=== PATIENT | male | born 1950 | race Caucasian/White ===

== ENCOUNTER 2023-06-15 13:36 | Inpatient (IN) | payer OTHER, MEDICARE, BC ==
[2023-06-15] MEDS ORDERED: Ondansetron 4 MG/2 ML SDV ONE (13:53)
[2023-06-15] MEDS ORDERED: Lactated Ringers 1,000 ML IV ONE (13:55)
[2023-06-15] MEDS ORDERED: Diphtheria,Pertussis(Acell),Tetanus Vaccine 0.5 ML Syringe IM ONE (13:56)
[2023-06-15] MEDS ORDERED: Iopamidol 755 Mg/ML 100 ML Bottle IVPUSH ONE ×2 (13:59→14:09)
[2023-06-15 14:13] LABS: BASOPHILS ABSOLUTE AUTO 0.02 10^3/uL (0.00-0.50); BASOPHILS PERCENT AUTO 0.2 % (0-1); EOSINOPHILS ABSOLUTE AUTO 0.03 10^3/uL (0.00-1.50); EOSINOPHILS PERCENT AUTO 0.3 % (0-6); HEMATOCRIT 38.7 % (42.0-52.0); HEMOGLOBIN 13.1 g/dL (14.0-18.0); IMMATURE GRAN PERCENT AUTO 1.1 % (0.0-4.9); LYMPHOCYTES ABSOLUTE AUTO 0.87 10^3/uL (0.60-5.00); LYMPHOCYTES PERCENT AUTO 9.8 % (24-44); MEAN CORPUSCULAR HGB CONC 33.9 g/dL (32.0-36.0); MEAN CORPUSCULAR VOLUME 91.7 fL (83.0-97.0); MONOCYTES ABSOLUTE AUTO 0.46 10^3/uL (0.00-1.50); MONOCYTES PERCENT AUTO 5.2 % (0-10); NEUTROPHILS ABSOLUTE AUTO 7.43 x10^3/uL (1.80-8.00); NEUTROPHILS PERCENT AUTO 83.4 % (41-71); PLATELET COUNT,PLT 145 10^3/uL (150-400); RED BLOOD CELL COUNT 4.22 x10^6/uL (4.50-6.00); WHITE BLOOD CELL COUNT,WBC 8.9 10^3/uL (4.0-11.0)
[2023-06-15] MEDS ORDERED: Bacitracin/Neomycin/Polymyxin B Oint 28.4 GM Tube TOP ONE (14:24)
[2023-06-15 14:33] LABS: ALANINE AMINOTRANSFERASE,ALT 24 U/L (12-78); ALBUMIN 3.4 g/dL (3.4-5.0); ALKALINE PHOSPHATASE 61 U/L (46-116); ASPARTATE AMNIOTRANSFERASE,AST 18 U/L (15-37); BILIRUBIN TOTAL 0.9 mg/dL (0.0-1.0); BLOOD UREA NITROGEN,BUN 15 mg/dL (7-18); C-REACTIVE PROTEIN 0.14 mg/dL (<=0.30); CALCIUM 8.5 mg/dL (8.4-10.1); CARBON DIOXIDE,CO2 30 mmol/L (21-32); CHLORIDE,CL 103 mEq/L (98-106); CREATININE 0.8 mg/dL (0.7-1.3); ESTIMATED GFR 93 mL/min (>=60); GLUCOSE RANDOM 117 mg/dL (75-99); POTASSIUM,K 4.2 mEq/L (3.5-5.0); SODIUM,NA 134 mEq/L (136-145)
[2023-06-15] MEDS ORDERED: Morphine 2 MG/ML SYRINGE IVPUSH ONE (15:04)
[2023-06-15 15:43] LABS: APPEARANCE,URINE CLEAR (CLEAR); BILIRUBIN,URINE NEGATIVE (NEGATIVE); COLOR,URINE YELLOW (YELLOW); GLUCOSE,URINE NEGATIVE (NEGATIVE); KETONES,URINE NEGATIVE (NEGATIVE); LEUKOCYTE ESTERASE,URINE NEGATIVE (NEGATIVE); NITRITE,URINE NEGATIVE (NEGATIVE); OCCULT BLOOD,URINE NEGATIVE (NEGATIVE); PROTEIN,URINE NEGATIVE (NEGATIVE); UROBILINOGEN,URINE 0.2 EU/dL (0.2-1.0)
[2023-06-15] MEDS ORDERED: Ondansetron 4 MG/2 ML SDV IV PRN (17:11)
[2023-06-15] MEDS ORDERED: HYDROmorphone 1 MG/ML Syringe IVPUSH PRN (17:11)
[2023-06-15] MEDS ORDERED: Temazepam 15 MG Cap PO PRN (17:11)
[2023-06-15] MEDS ORDERED: Ondansetron 4 MG Tab.DIS PO PRN (17:11)
[2023-06-15] MEDS ORDERED: Naloxone 2 MG/2 ML Syringe IVPUSH PRN (17:11)
[2023-06-15] MEDS ORDERED: Sodium Chloride 0.9% 10 ML Syringe FLUSH PRN (17:11)
[2023-06-15] MEDS: Acetaminophen/HYDROcodone 325-5 MG Tab PO PRN ×2 (19:01→23:10)
[2023-06-15] MEDS: Docusate Sodium 100 MG Cap PO SCH (19:46)
[2023-06-16] MEDS ORDERED: fentaNYL 50 MCG/ML SDV IVPUSH ONE (03:01)
[2023-06-16] MEDS: Acetaminophen/HYDROcodone 325-5 MG Tab PO PRN ×4 (03:32→21:18)
[2023-06-16] MEDS: Rosuvastatin 10 MG Tab PO SCH (07:02)
[2023-06-16] MEDS: Aspirin 81 MG Tab.Chew PO SCH (07:03)
[2023-06-16] MEDS: Docusate Sodium 100 MG Cap PO SCH ×2 (07:03→21:18)
[2023-06-16] MEDS: Atenolol 25 MG Tab PO SCH (07:03)
[2023-06-16] MEDS: Multivitamin Tab PO SCH (07:04)
[2023-06-16] MEDS: Bacitracin/Neomycin/Polymyxin B Oint 28.4 GM Tube TOP SCH (07:04)
[2023-06-16 08:00] LABS: BASOPHILS ABSOLUTE AUTO 0.02 10^3/uL (0.00-0.50); BASOPHILS PERCENT AUTO 0.2 % (0-1); HEMATOCRIT 39.3 % (42.0-52.0); HEMOGLOBIN 13.3 g/dL (14.0-18.0); IMMATURE GRAN ABSOLUTE AUTO 0.02 10^3/uL (0.00-0.49); IMMATURE GRAN PERCENT AUTO 0.2 % (0.0-4.9); LYMPHOCYTES ABSOLUTE AUTO 0.93 10^3/uL (0.60-5.00); LYMPHOCYTES PERCENT AUTO 9.4 % (24-44); MEAN CORPUSCULAR HEMOGLOBIN 31.3 pg (27.0-32.0); MEAN CORPUSCULAR HGB CONC 33.8 g/dL (32.0-36.0); MEAN CORPUSCULAR VOLUME 92.5 fL (83.0-97.0); MONOCYTES ABSOLUTE AUTO 0.61 10^3/uL (0.00-1.50); MONOCYTES PERCENT AUTO 6.1 % (0-10); NEUTROPHILS ABSOLUTE AUTO 8.26 x10^3/uL (1.80-8.00); NEUTROPHILS PERCENT AUTO 83.1 % (41-71); PLATELET COUNT,PLT 137 10^3/uL (150-400); RED BLOOD CELL COUNT 4.25 x10^6/uL (4.50-6.00); WHITE BLOOD CELL COUNT,WBC 9.9 10^3/uL (4.0-11.0)
[2023-06-16] MEDS ORDERED: Bacitracin/Neomycin/Polymyxin B Oint 0.9 GM U/D Packet TOP SCH (08:00)
[2023-06-16] MEDS ORDERED: ERGOCALCIFEROL 2000 UNIT PO SCH (08:00)
[2023-06-16 08:31] LABS: ALBUMIN 3.7 g/dL (3.4-5.0); BILIRUBIN TOTAL 1.8 mg/dL (0.0-1.0); CALCIUM 9.2 mg/dL (8.4-10.1); CREATININE 0.8 mg/dL (0.7-1.3); EST CRCL DRUG DOSING (CG) 86.28 mL/min; POTASSIUM,K 4.6 mEq/L (3.5-5.0); PROTEIN TOTAL,TP 6.6 g/dL (6.4-8.2)
[2023-06-16] MEDS: Acetaminophen 325 MG Tab PO PRN (12:12)
[2023-06-16] MEDS: Polyethylene Glycol 3350 Powder 17 GM Packet PO PRN (17:20)
[2023-06-17] MEDS: Bacitracin/Neomycin/Polymyxin B Oint 28.4 GM Tube TOP SCH ×2 (01:30→07:34)
[2023-06-17] MEDS: Acetaminophen/HYDROcodone 325-5 MG Tab PO PRN ×2 (01:30→07:33)
[2023-06-17] MEDS: Rosuvastatin 10 MG Tab PO SCH (07:31)
[2023-06-17] MEDS: Multivitamin Tab PO SCH (07:32)
[2023-06-17] MEDS: Atenolol 25 MG Tab PO SCH (07:32)
[2023-06-17] MEDS: Calcium Carbonate/Magnesium Oxide/Zinc Oxide Tab PO SCH (07:32)
[2023-06-17] MEDS: Docusate Sodium 100 MG Cap PO SCH ×2 (07:33→19:28)
[2023-06-17] MEDS: Aspirin 81 MG Tab.Chew PO SCH (07:33)
[2023-06-17] MEDS: Polyethylene Glycol 3350 Powder 17 GM Packet PO PRN (07:35)
[2023-06-17 07:49] LABS: BASOPHILS ABSOLUTE AUTO 0.02 10^3/uL (0.00-0.50); BASOPHILS PERCENT AUTO 0.2 % (0-1); EOSINOPHILS ABSOLUTE AUTO 0.15 10^3/uL (0.00-1.50); EOSINOPHILS PERCENT AUTO 1.7 % (0-6); HEMATOCRIT 37.2 % (42.0-52.0); HEMOGLOBIN 12.5 g/dL (14.0-18.0); IMMATURE GRAN ABSOLUTE AUTO 0.04 10^3/uL (0.00-0.49); IMMATURE GRAN PERCENT AUTO 0.5 % (0.0-4.9); LYMPHOCYTES ABSOLUTE AUTO 0.94 10^3/uL (0.60-5.00); LYMPHOCYTES PERCENT AUTO 10.8 % (24-44); MEAN CORPUSCULAR HEMOGLOBIN 31.2 pg (27.0-32.0); MEAN CORPUSCULAR HGB CONC 33.6 g/dL (32.0-36.0); MEAN CORPUSCULAR VOLUME 92.8 fL (83.0-97.0); MONOCYTES ABSOLUTE AUTO 0.64 10^3/uL (0.00-1.50); MONOCYTES PERCENT AUTO 7.4 % (0-10); NEUTROPHILS ABSOLUTE AUTO 6.89 x10^3/uL (1.80-8.00); NEUTROPHILS PERCENT AUTO 79.4 % (41-71); PLATELET COUNT,PLT 123 10^3/uL (150-400); RED BLOOD CELL COUNT 4.01 x10^6/uL (4.50-6.00); WHITE BLOOD CELL COUNT,WBC 8.7 10^3/uL (4.0-11.0)
[2023-06-17 08:05] LABS: ALBUMIN 3.2 g/dL (3.4-5.0); BILIRUBIN TOTAL 1.6 mg/dL (0.0-1.0); CALCIUM 8.7 mg/dL (8.4-10.1); CREATININE 0.7 mg/dL (0.7-1.3); EST CRCL DRUG DOSING (CG) 97.11 mL/min; POTASSIUM,K 4.7 mEq/L (3.5-5.0); PROTEIN TOTAL,TP 6.3 g/dL (6.4-8.2)
[2023-06-17] MEDS: oxyCODONE 5 MG Tab PO PRN (17:03)
[2023-06-17] MEDS: Acetaminophen 325 MG Tab PO PRN (19:28)
[2023-06-18] MEDS: Bacitracin/Neomycin/Polymyxin B Oint 28.4 GM Tube TOP SCH ×2 (00:59→07:35)
[2023-06-18] MEDS: oxyCODONE 5 MG Tab PO PRN ×2 (05:29→11:58)
[2023-06-18] MEDS: Rosuvastatin 10 MG Tab PO SCH (07:32)
[2023-06-18] MEDS: Docusate Sodium 100 MG Cap PO SCH (07:32)
[2023-06-18] MEDS: Multivitamin Tab PO SCH (07:32)
[2023-06-18] MEDS: Atenolol 25 MG Tab PO SCH (07:33)
[2023-06-18] MEDS: Calcium Carbonate/Magnesium Oxide/Zinc Oxide Tab PO SCH (07:34)
[2023-06-18] MEDS: Aspirin 81 MG Tab.Chew PO SCH (07:34)
[2023-06-18 07:50] LABS: BASOPHILS ABSOLUTE AUTO 0.02 10^3/uL (0.00-0.50); BASOPHILS PERCENT AUTO 0.2 % (0-1); EOSINOPHILS ABSOLUTE AUTO 0.08 10^3/uL (0.00-1.50); HEMATOCRIT 37.9 % (42.0-52.0); HEMOGLOBIN 12.9 g/dL (14.0-18.0); IMMATURE GRAN ABSOLUTE AUTO 0.03 10^3/uL (0.00-0.49); IMMATURE GRAN PERCENT AUTO 0.4 % (0.0-4.9); LYMPHOCYTES ABSOLUTE AUTO 0.64 10^3/uL (0.60-5.00); LYMPHOCYTES PERCENT AUTO 7.8 % (24-44); MEAN CORPUSCULAR HEMOGLOBIN 31.2 pg (27.0-32.0); MEAN CORPUSCULAR VOLUME 91.5 fL (83.0-97.0); MONOCYTES PERCENT AUTO 8.5 % (0-10); NEUTROPHILS ABSOLUTE AUTO 6.78 x10^3/uL (1.80-8.00); NEUTROPHILS PERCENT AUTO 82.1 % (41-71); PLATELET COUNT,PLT 122 10^3/uL (150-400); RED BLOOD CELL COUNT 4.14 x10^6/uL (4.50-6.00); WHITE BLOOD CELL COUNT,WBC 8.3 10^3/uL (4.0-11.0)
[2023-06-18 08:16] LABS: ALBUMIN 3.3 g/dL (3.4-5.0); BILIRUBIN TOTAL 1.9 mg/dL (0.0-1.0); C-REACTIVE PROTEIN 9.57 mg/dL (<=0.30); CALCIUM 9.1 mg/dL (8.4-10.1); CREATININE 0.8 mg/dL (0.7-1.3); EST CRCL DRUG DOSING (CG) 84.97 mL/min; POTASSIUM,K 4.6 mEq/L (3.5-5.0); PROTEIN TOTAL,TP 6.8 g/dL (6.4-8.2)
[2023-06-18 12:05] VITALS: BP 147/74; PULSE 57
== END 2023-06-18 14:58 | disposition home or self-care (01) | DRG 183 ==
LOC: CC.ED 13:36 → CC.MS 16:01 → UNDOADMOB 16:01 → CC.MS 16:11 → UNDOADMOB 16:13 → CC.MS 16:13 → OBSVTOIN 06-17 19:07 → INTOOBSV 06-17 19:07
PROVIDERS: ADMIT Nurse Practitioner Family; ATTEND Nurse Practitioner Family
DX: S22.42XA Multiple fractures of ribs, left side, initial encounter for closed fracture (principal); S27.2XXA Traumatic hemopneumothorax, initial encounter; J90 Pleural effusion, not elsewhere classified; S42.112A Displaced fracture of body of scapula, left shoulder, initial encounter for closed fracture; V89.2XXA Person injured in unspecified motor-vehicle accident, traffic, initial encounter; Z79.82 Long term (current) use of aspirin; Z79.899 Other long term (current) drug therapy; Y92.89 Other specified places as the place of occurrence of the external cause
CPT/HCPCS: 36415; 70450; 71046; 71260; 72125; 74177; 80053; 81003; 85025; 86140; 90471; 90715; 93005; 93010; 96361; 96374; 96375; 97110-GP; 97161-GP; 99285-25; A9270-GY; G0378; J1170; J2270; J2405; J7120; Q9967